=== PATIENT | female | born 1955 | race Caucasian/White ===

== ENCOUNTER 2023-04-08 15:53 | Emergency (ER) | payer MEDICARE ==
[~2023-04-08] VITALS: Ht 152.4 cm; Wt 90.0 kg
[2023-04-08] MEDS ORDERED: NAPR-56 PO (18:32)
[2023-04-08 18:47] VITALS: BP 137/73; PULSE 85; RESP 18; TEMP 98.2; O2SAT 95
== END 2023-04-08 18:50 | disposition home or self-care (01) ==
LOC: ER 15:55
DX: S92.345A Nondisplaced fracture of fourth metatarsal bone, left foot, initial encounter for closed fracture (principal); X58.XXXA Exposure to other specified factors, initial encounter; Y93.89 Activity, other specified; Y92.89 Other specified places as the place of occurrence of the external cause; Y99.8 Other external cause status
CPT/HCPCS: 73130; 73630; 99284; L4360

== ENCOUNTER 2024-06-09 09:23 | Observation (INO) | payer MEDICARE, MEDICAID ==
[~2024-06-09] VITALS: Ht 157.5 cm; Wt 78.0 kg
[~2024-06-09 09:23] MED LIST: GABA-1405 PO; LEVEMIR; METF-438 PO; NOR5T PO; NYST15PO13 TOP; SIMV-342 PO; TIRZ2.5P
[2024-06-09 09:51] LABS: BASOPHILS % (AUTO) 0.2 % (0-1); EOSINOPHILS % (AUTO) 0.5 % (0-6); HEMATOCRIT 41.2 % (35.0-45.0); HEMOGLOBIN 13.4 g/dl (12.0-16.0); LYMPHOCYTES # (AUTO) 1.1 X10'3 (1.1-4.8); LYMPHOCYTES % (AUTO) 19.4 % (21-51); MEAN CORPUSCULAR HEMOGLOBIN 28.7 PG (27.0-31.0); MEAN CORPUSCULAR HGB CONC 32.5 g/dL (33.0-36.5); MEAN CORPUSCULAR VOLUME 88.2 FL (78-98); MEAN PLATELET VOLUME 7.7 FL (7.4-10.4); MONOCYTES # (AUTO) 0.4 X10'3 (0-0.9); MONOCYTES % (AUTO) 6.8 % (2-12); NEUTROPHILS % (AUTO) 73.1 % (42-75); PLATELET COUNT 353 X10'3 (140-440); RED BLOOD COUNT 4.67 X10'6 (4.20-5.60); RED CELL DISTRIBUTION WIDTH 14.1 % (11.5-14.5); WHITE BLOOD COUNT 5.5 X10'3 (4.5-11.0)
[2024-06-09 10:14] LABS: ALANINE AMINOTRANSFERASE 21 U/L (12-78); ALBUMIN 3.6 G/DL (3.4-5.0); ALKALINE PHOSPHATASE 102 IU/L (46-116); ANION GAP 8 (8-16); ASPARTATE AMINO TRANSFERASE 15 U/L (10-37); BILIRUBIN,TOTAL 0.4 MG/DL (0.1-1.0); BLOOD UREA NITROGEN 22 MG/DL (7-18); BUN/CREATININE RATIO 34.4 (10.0-20.0); CALCIUM 9.4 MG/DL (8.5-10.1); CHLORIDE 106 MMOL/L (99-107); CREATININE 0.64 MG/DL (0.40-0.90); GLUCOSE 97 MG/DL (70-104); POTASSIUM 4.8 MMOL/L (3.5-5.1); SODIUM 140 MMOL/L (135-145); TOTAL CARBON DIOXIDE 26.5 MMOL/L (24-32); TOTAL PROTEIN 7.1 G/DL (6.4-8.2); eCRCL 66 ML/MIN; eGFR > 90 ML/MIN
[2024-06-09] MEDS: ondansetron/PF 4mg/2ml inj IV ONE (10:15)
[2024-06-09] MEDS: normal saline 1000ml 1,000 ML IV ONE (10:15)
[2024-06-09 10:23] LABS: BILIRUBIN,URINE SMALL (Neg); CLARITY,URINE CLOUDY (Clear); COLOR,URINE YELLOW (Yellow); GLUCOSE, URINE NEGATIVE (Neg); KETONES,URINE NEGATIVE (Neg); LEUKOCYTE ESTERASE ,URINE TRACE (Neg); NITRITES, URINE POSITIVE (Neg); OCCULT BLOOD,URINE TRACE-INTACT (Neg); PH,URINE 5.5 (4.8-8.0); PROTEIN,URINE 100 mg/dl (Neg)
[2024-06-09 10:26] LABS: UA COLLECTION TYPE NON-SPECIFIED
[2024-06-09 10:29] LABS: BACTERIA,URINE 3+ /HPF (Neg); MUCUS STRANDS FEW /LPF (Neg); SQUAMOUS EPITHELIAL CELL,UR FEW /LPF (FEW); TRANSITIONAL EPI CELLS,URINE FEW /HPF
[2024-06-09] MEDS: CefTRIAXone/D5W-Rocephin 1gm 50 ML IV ONE (12:44)
[2024-06-09] MEDS ORDERED: HYDROmorphone/PF 0.2 MG/ML SYRINGE IV PRN (13:10)
[2024-06-09] MEDS ORDERED: acetaminophen 325mg tablet PO PRN ×2 (13:10)
[2024-06-09] MEDS ORDERED: ondansetron/PF 4mg/2ml inj IV PRN (13:10)
[2024-06-09] MEDS ORDERED: dextrose 50%-water 50ml dispensing syringe IV PRN ×2 (13:10)
[2024-06-09] MEDS ORDERED: magnesium hydroxide 30ml (MOM) UD suspension PO PRN (13:10)
[2024-06-09] MEDS ORDERED: mag hydrox/Alum hydrox/simeth 30ml oral suspension PO PRN (13:10)
[2024-06-09] MEDS ORDERED: DEXTROSE 15 GM of carb/4 tabs (each vial/BOTTLE has 4 tablets) PO PRN ×2 (13:10)
[2024-06-09] MEDS ORDERED: glucagon, human recombinant 1mg kit SUBCUT PRN (13:10)
[2024-06-09] MEDS ORDERED: morphine 2 MG/ML inj. syringe IV PRN (13:10)
[2024-06-09] MEDS: normal saline 1000ml 1,000 ML IV SCH (13:36)
[2024-06-09 14:17] LABS: HEMOGLOBIN A1C 6.8 % (4.5-6.2)
[2024-06-09] MEDS ORDERED: PIOG45TA65 PO (14:25)
[2024-06-09] MEDS ORDERED: INSU100V12 SQ (14:25)
[2024-06-09] MEDS ORDERED: BLOO-580 (14:25)
[2024-06-09] MEDS ORDERED: AMLO5TAB16 PO (14:25)
[2024-06-09] MEDS: docusate sod 100mg capsule PO SCH (20:00)
[2024-06-09 23:14] VITALS: TEMP 98.1
[2024-06-10 03:01] LABS: BASOPHILS % (AUTO) 0.3 % (0-1); EOSINOPHILS # (AUTO) 0.1 X10'3 (0-0.9); EOSINOPHILS % (AUTO) 1.5 % (0-6); HEMATOCRIT 33.5 % (35.0-45.0); HEMOGLOBIN 11.3 g/dl (12.0-16.0); LYMPHOCYTES # (AUTO) 1.2 X10'3 (1.1-4.8); LYMPHOCYTES % (AUTO) 18.8 % (21-51); MEAN CORPUSCULAR HEMOGLOBIN 29.3 PG (27.0-31.0); MEAN CORPUSCULAR HGB CONC 33.9 g/dL (33.0-36.5); MEAN CORPUSCULAR VOLUME 86.5 FL (78-98); MEAN PLATELET VOLUME 7.7 FL (7.4-10.4); MONOCYTES # (AUTO) 0.7 X10'3 (0-0.9); MONOCYTES % (AUTO) 10.7 % (2-12); NEUTROPHILS # (AUTO) 4.2 X10'3 (1.8-7.7); NEUTROPHILS % (AUTO) 68.7 % (42-75); PLATELET COUNT 305 X10'3 (140-440); RED BLOOD COUNT 3.87 X10'6 (4.20-5.60); RED CELL DISTRIBUTION WIDTH 13.9 % (11.5-14.5); WHITE BLOOD COUNT 6.2 X10'3 (4.5-11.0)
[2024-06-10 03:20] LABS: ANION GAP 5 (8-16); BLOOD UREA NITROGEN 14 MG/DL (7-18); BUN/CREATININE RATIO 22.2 (10.0-20.0); CALCIUM 8.9 MG/DL (8.5-10.1); CHLORIDE 107 MMOL/L (99-107); CREATININE 0.63 MG/DL (0.40-0.90); GLUCOSE 261 MG/DL (70-104); POTASSIUM 4.8 MMOL/L (3.5-5.1); SODIUM 138 MMOL/L (135-145); TOTAL CARBON DIOXIDE 26.3 MMOL/L (24-32); eCRCL 67 ML/MIN; eGFR > 90 ML/MIN
[2024-06-10] MEDS: pioglitazone 45mg tablet PO SCH (09:53)
[2024-06-10] MEDS: amLODIPine 5mg tablet PO SCH (09:55)
[2024-06-10] MEDS ORDERED: INSU100V12 SQ (10:32)
[2024-06-10] MEDS ORDERED: LANTUS SUBCUT (10:32)
[2024-06-10] MEDS: hydrALAZINE 20mg/ml inj. IV ONE (11:24)
[2024-06-10 12:10] VITALS: BP 150/77; PULSE 95; RESP 16; O2SAT 97
[2024-06-10] MEDS ORDERED: gabapentin 300mg capsule PO SCH (16:00)
[2024-06-10] MEDS ORDERED: insulin glargine (Lantus) pen - multi-dose SQ SCH (20:00)
[2024-06-10] MEDS ORDERED: simvastatin 20mg tablet PO SCH (21:00)
== END 2024-06-10 13:44 | disposition home or self-care (01) ==
LOC: ER 09:24 → ED HOLD 13:12 → INTOOBSV 13:12 → CANBEDREQ 06-10 12:16
PROVIDERS: ADMIT Internal Medicine; ATTEND Internal Medicine
DX: E11.649 Type 2 diabetes mellitus with hypoglycemia without coma (principal); N39.0 Urinary tract infection, site not specified; E78.5 Hyperlipidemia, unspecified; R55 Syncope and collapse; Z79.899 Other long term (current) drug therapy; Z79.84 Long term (current) use of oral hypoglycemic drugs
CPT/HCPCS: 80048; 80053; 81001; 82948; 83036; 83605; 84484; 87040; 87077; 87186; 93005; 96361; 96365; 96375; 99284; G0378; 36415; 71045; 85025; 87081; 87088; 99285; J0360; J0696; J1815; J2405; J7030

== ENCOUNTER 2024-09-26 09:33 | Emergency (ER) | payer MEDICARE, MEDICAID ==
[~2024-09-26] VITALS: Ht 160 cm; Wt 89.0 kg
[~2024-09-26 09:33] MED LIST changes: +AMLO5TAB16 PO; +INSU100V12 SQ; -LEVEMIR; -METF-438 PO; -NOR5T PO; -NYST15PO13 TOP
[2024-09-26 14:06] VITALS: BP 174/68; PULSE 83; RESP 14; TEMP 97.7; O2SAT 96
== END 2024-09-26 17:00 | disposition home or self-care (01) ==
LOC: ER 09:34
DX: E11.649 Type 2 diabetes mellitus with hypoglycemia without coma (principal); E11.621 Type 2 diabetes mellitus with foot ulcer; L97.529 Non-pressure chronic ulcer of other part of left foot with unspecified severity; Z79.4 Long term (current) use of insulin
CPT/HCPCS: 82948; 99283; A6222; A6402; Z7610; A6449